=== PATIENT | male | born 1960 | race Caucasian/White ===

== ENCOUNTER 2020-01-08 11:53 | Observation (INO) ==
[2020-01-08] MEDS ORDERED: Ketorolac 15 MG/ML VIAL IVP ONE ×2 (12:17→14:13)
[2020-01-08] MEDS ORDERED: *HR* HYDROmorphone (PF) 1 MG/ML SYRINGE IVP ONE ×2 (12:17→14:13)
[2020-01-08] MEDS ORDERED: Ondansetron 4 MG/2 ML VIAL IVP ONE (12:18)
[2020-01-08 12:25] LABS: Basophils # 0.1 K/mcL (0.0-0.2); Basophils % 0.4 %; Hematocrit 45.6 % (37.5-50.1); Hemoglobin 15.1 g/dL (12.9-16.9); Immature Granulocytes % 0.5 % (0-4); Lymphocytes # 1.7 K/mcL (0.6-4.6); Lymphocytes % 9.5 %; Mean Corpuscular HGB Conc 33.1 g/dL (31.6-35.5); Mean Corpuscular Hemoglobin 30.9 pg (28.0-33.3); Mean Corpuscular Volume 93.4 fL (83.0-100.0); Mean Platelet Volume 10.3 fL (9.4-12.4); Monocytes # 0.9 K/mcL (0.0-1.3); Monocytes % 4.9 %; Neutrophils # 14.8 K/mcL (1.6-8.9); Platelet Count 311 K/mcL (140-400); Red Blood Count 4.88 M/mcL (4.19-5.50); Red Cell Distribution Width 11.8 % (11.5-14.5); Segmented Neutrophils % 84.7 %; White Blood Count 17.5 K/mcL (4.3-11.1)
[2020-01-08 12:25] LABS: Bilirubin,Urine Negative (Negative); Blood,Urine Large (Negative); Clarity,Urine Cloudy (Clear); Color,Urine Yellow (Yellow); Glucose,Urine (UA) >=1000 mg/dL (Normal); Ketones,Urine 40 mg/dL (Negative); Leukocyte Esterase,Urine Negative (Negative); Nitrite,Urine Negative (Negative); PH,Urine 5.5 pH Units (5.0-8.0); Protein,Urine 30 mg/dL (Neg-Trace); Urobilinogen,Urine Normal (Normal)
[2020-01-08 12:26] LABS: Bacteria,Urine None Seen per hpf (None-Few); Hyaline Casts,Urine None Seen per lpf (None-Few); RBC,Urine TNTC per hpf (0-3); Squamous Epithelial Cell,Urine Few per lpf (None-Few)
[2020-01-08 13:01] LABS: BUN/Creatinine Ratio 15 (6-26); Blood Urea Nitrogen 18 mg/dL (6-20); Carbon Dioxide 22 mEq/L (23-29); Chloride 102 mEq/L (98-107); Glucose 331 mg/dL (70-105); Osmolality,Calculated 301 (280-300); Potassium 4.4 mEq/L (3.5-5.1); Sodium 138 mEq/L (136-145); eGFR For African Americans > 60 (> 60); eGFR For Non-African Americans > 60 (> 60)
[2020-01-08] MEDS ORDERED: Dextrose Gel 15 GM/37.5 ML TUBE PO PRN ×2 (16:37)
[2020-01-08] MEDS ORDERED: D5% in Water 1,000 ML IVC PRN (16:37)
[2020-01-08] MEDS ORDERED: *HR* Dextrose 50 % in Water (Syg) 50 ML SYRINGE IVP PRN (16:37)
[2020-01-08] MEDS ORDERED: Insulin LISPRO 300 UNITS/3 ML VIAL SQ SCH (16:45)
[2020-01-08] MEDS: Ondansetron 4 MG/2 ML VIAL IVP PRN (17:31)
[2020-01-08] MEDS ORDERED: Naloxone 0.4 MG/ML INJ IVP PRN (17:55)
[2020-01-08] MEDS ORDERED: 0.9 % Sodium Chloride 1,000 ML IVC SCH (18:00)
[2020-01-09] MEDS: Insulin LISPRO 300 UNITS/3 ML VIAL SQ SCH ×3 (00:32→12:09)
[2020-01-09 07:30] LABS: Basophils # 0.1 K/mcL (0.0-0.2); Basophils % 0.5 %; Eosinophils # 0.2 K/mcL (0.0-0.6); Eosinophils % 1.2 %; Hematocrit 41.8 % (37.5-50.1); Hemoglobin 13.6 g/dL (12.9-16.9); Immature Granulocytes % 0.4 % (0-4); Lymphocytes # 2.9 K/mcL (0.6-4.6); Lymphocytes % 22.1 %; Mean Corpuscular HGB Conc 32.5 g/dL (31.6-35.5); Mean Corpuscular Hemoglobin 30.6 pg (28.0-33.3); Mean Corpuscular Volume 93.9 fL (83.0-100.0); Mean Platelet Volume 10.6 fL (9.4-12.4); Monocytes # 1.3 K/mcL (0.0-1.3); Neutrophils # 8.5 K/mcL (1.6-8.9); Platelet Count 259 K/mcL (140-400); Red Blood Count 4.45 M/mcL (4.19-5.50); Red Cell Distribution Width 12.1 % (11.5-14.5); Segmented Neutrophils % 65.8 %
[2020-01-09 07:32] LABS: Estimated Average Glucose 260 mg/dl
[2020-01-09 07:49] LABS: BUN/Creatinine Ratio 19 (6-26); Blood Urea Nitrogen 26 mg/dL (6-20); Calcium 8.4 mg/dL (8.6-10.3); Carbon Dioxide 26 mEq/L (23-29); Chloride 104 mEq/L (98-107); Glucose 185 mg/dL (70-105); Osmolality,Calculated 294 (280-300); Potassium 4.2 mEq/L (3.5-5.1); Sodium 137 mEq/L (136-145); eGFR For African Americans > 60 (> 60); eGFR For Non-African Americans 52 (> 60)
[2020-01-09] MEDS ORDERED: levETIRAcetam 250 MG TABLET PO SCH (09:00)
[2020-01-09] MEDS ORDERED: *HR* HYDROmorphone (PF) 1 MG/ML SYRINGE IVP ONE ×2 (09:55→10:35)
[2020-01-09] MEDS: Ondansetron 4 MG/2 ML VIAL IVP PRN (10:22)
[2020-01-09] MEDS ORDERED: *HR* HYDROmorphone (PF) 1 MG/ML SYRINGE IVP PRN (12:57)
[2020-01-09] MEDS ORDERED: *HR* Labetalol 20 MG/4 ML SYRINGE IVP PRN (12:57)
[2020-01-09] MEDS ORDERED: *HR* HYDROmorphone 2 MG TABLET PO PRN (12:57)
[2020-01-09] MEDS ORDERED: *HR* Promethazine 25 MG/ML VIAL IVP PRN (12:57)
[2020-01-09] MEDS ORDERED: *HR* OxyCODONE Immed Rel 5 MG TABLET PO PRN (12:57)
[2020-01-09] MEDS ORDERED: Acetaminophen IV 1,000 MG/100 ML INFUS..BTL IVPB ONE (12:57)
[2020-01-09] MEDS ORDERED: Lidocaine -MPF 2% 2 ML VIAL ONE (13:28)
[2020-01-09] MEDS ORDERED: Ondansetron 4 MG/2 ML VIAL ONE (13:28)
[2020-01-09] MEDS ORDERED: Dexamethasone 4 MG/ML VIAL ONE (13:28)
[2020-01-09] MEDS ORDERED: *HR* FentaNYL (PF) 100 MCG/2 ML VIAL ONE (13:28)
[2020-01-09] MEDS ORDERED: *HR* Propofol 200 MG/20 ML VIAL IVP ONE (13:28)
[2020-01-09] MEDS ORDERED: Clindamycin 600 MG/50 ML 600 MG/50 ML IV.SOLN IVPB ONE (14:00)
[2020-01-09] MEDS ORDERED: *HR* PHENYLEPHRINE 1,000 MCG/10 ML SYRINGE IVP ONE (14:05)
[2020-01-09] MEDS ORDERED: *HR* Belladonna Alkaloids/Opium 30 MG RECTAL SUPPOSITORY RC PRN (15:35)
[2020-01-09] MEDS ORDERED: Naloxone 0.4 MG/ML INJ IVP PRN (15:35)
[2020-01-09] MEDS ORDERED: Dextrose Gel 15 GM/37.5 ML TUBE PO PRN ×2 (15:35)
[2020-01-09] MEDS ORDERED: *HR* Dextrose 50 % in Water (Syg) 50 ML SYRINGE IVP PRN (15:35)
[2020-01-09] MEDS ORDERED: D5% in Water 1,000 ML IVC PRN (15:35)
[2020-01-09] MEDS ORDERED: Ondansetron 4 MG/2 ML VIAL IVP PRN (15:35)
[2020-01-09 15:52] VITALS: BP 132/84
[2020-01-09] MEDS ORDERED: Insulin LISPRO 300 UNITS/3 ML VIAL SQ SCH (18:00)
== END 2020-01-09 17:21 | disposition home or self-care (01) ==
LOC: 3ANU 11:53 → EMEROOARM 11:53 → SUATTDRO 15:18 → 3ANU 15:44
PROVIDERS: ADMIT Family Medicine; ATTEND Nurse Practitioner

== ENCOUNTER 2020-12-21 14:11 | Inpatient (IN) ==
[2020-12-21] MEDS ORDERED: *HR* HYDROmorphone (PF) 1 MG/ML SYRINGE IVP ONE (14:46)
[2020-12-21] MEDS ORDERED: Ketorolac 15 MG/ML VIAL IVP ONE (14:46)
[2020-12-21] MEDS ORDERED: *HR* Promethazine 25 MG/ML VIAL IM ONE (14:46)
[2020-12-21 15:03] LABS: Bacteria,Urine Few per hpf (None-Few); Bilirubin,Urine Negative (Negative); Blood,Urine Moderate (Negative); Clarity,Urine Clear (Clear); Color,Urine Light-Yellow (Yellow); Glucose,Urine (UA) 200 mg/dL (Normal); Ketones,Urine Trace mg/dL (Negative); Leukocyte Esterase,Urine Small (Negative); Mucus,Urine Few per lpf (None-Few); Nitrite,Urine Negative (Negative); PH,Urine 5.5 pH Units (5.0-8.0); Protein,Urine Trace mg/dL (Neg-Trace); RBC,Urine 15-30 per hpf (0-3); Specific Gravity,Urine 1.017 (1.010-1.025); Squamous Epithelial Cell,Urine Few per hpf (None-Few); Urobilinogen,Urine Normal (Normal)
[2020-12-21 15:27] LABS: Basophils % 0.3 %; Hematocrit 44.7 % (37.5-50.1); Hemoglobin 14.2 g/dL (12.9-16.9); Immature Granulocytes % 0.5 % (0-4); Lymphocytes # 1.2 K/mcL (0.6-4.6); Lymphocytes % 7.7 %; Mean Corpuscular HGB Conc 31.8 g/dL (31.6-35.5); Mean Corpuscular Hemoglobin 29.4 pg (28.0-33.3); Mean Corpuscular Volume 92.5 fL (83.0-100.0); Mean Platelet Volume 10.7 fL (9.4-12.4); Monocytes % 6.8 %; Neutrophils # 12.7 K/mcL (1.6-8.9); Platelet Count 291 K/mcL (140-400); Red Blood Count 4.83 M/mcL (4.19-5.50); Red Cell Distribution Width 11.9 % (11.5-14.5); Segmented Neutrophils % 84.7 %
[2020-12-21 15:31] LABS: Calcium 9.3 mg/dL (8.6-10.3); Potassium 4.6 mEq/L (3.5-5.1)
[2020-12-21] MEDS ORDERED: Ondansetron 4 MG/2 ML VIAL IVP PRN ×2 (17:45→21:00)
[2020-12-21] MEDS ORDERED: Naloxone 0.4 MG/ML INJ IVP PRN ×2 (17:45→21:00)
[2020-12-21] MEDS ORDERED: 0.9 % Sodium Chloride 1,000 ML IV ONE ×2 (17:50→21:00)
[2020-12-21] MEDS ORDERED: *HR* HYDROmorphone 2 MG/ML SYRINGE IVP PRN (17:50)
[2020-12-21] MEDS ORDERED: D5% in Water 1,000 ML IVC PRN ×2 (17:53→21:00)
[2020-12-21] MEDS ORDERED: Dextrose Gel 15 GM/37.5 ML TUBE PO PRN ×4 (17:53→21:00)
[2020-12-21] MEDS ORDERED: *HR* Dextrose 50 % in Water (Vial) 50 ML VIAL IVP PRN ×2 (17:53→21:00)
[2020-12-21] MEDS ORDERED: Clindamycin 900 MG/50 ML 0 MG/0 ML IV.SOLN IVPB ONE (17:58)
[2020-12-21] MEDS ORDERED: levoFLOXacin 750 MG/150 ML 750 MG/150 ML BAG IVPB SCH (18:00)
[2020-12-21] MEDS ORDERED: 0.9 % Sodium Chloride 1,000 ML IVC SCH (18:00)
[2020-12-21] MEDS ORDERED: *HR* HYDROmorphone (PF) 1 MG/ML SYRINGE IVP PRN (18:11)
[2020-12-21] MEDS ORDERED: *HR* FentaNYL (PF) 100 MCG/2 ML VIAL ONE (19:21)
[2020-12-21] MEDS ORDERED: *HR* PHENYLEPHRINE 1,000 MCG/10 ML SYRINGE IVP ONE (19:36)
[2020-12-21] MEDS ORDERED: Ondansetron 4 MG/2 ML VIAL ONE (19:39)
[2020-12-21] MEDS ORDERED: Dexamethasone 4 MG/ML VIAL ONE (19:39)
[2020-12-21] MEDS ORDERED: Isovue-300 50ML VIAL ONE (19:42)
[2020-12-21] MEDS ORDERED: Chlorhexidine Rinse 15 ML MOUTHWASH MM SCH (21:00)
[2020-12-21] MEDS ORDERED: *HR* Belladonna Alkaloids/Opium 30 MG RECTAL SUPPOSITORY RC PRN (21:00)
[2020-12-21] MEDS ORDERED: levETIRAcetam 250 MG TABLET PO SCH (21:00)
[2020-12-21] MEDS ORDERED: Insulin LISPRO 300 UNITS/3 ML VIAL SUBQ SCH ×2 (21:00)
[2020-12-21] MEDS: levETIRAcetam 250 MG TABLET PO SCH (21:38)
[2020-12-21] MEDS: Chlorhexidine Rinse 15 ML MOUTHWASH MM SCH (21:46)
[2020-12-21] MEDS: 0.9 % Sodium Chloride 1,000 ML IVC SCH (21:47)
[2020-12-22] MEDS: Insulin LISPRO 300 UNITS/3 ML VIAL SUBQ SCH ×3 (06:09→16:39)
[2020-12-22] MEDS ORDERED: Insulin LISPRO 300 UNITS/3 ML VIAL SUBQ SCH ×2 (07:30)
[2020-12-22 09:09] LABS: Basophils % 0.1 %; Hematocrit 38.4 % (37.5-50.1); Immature Granulocytes % 0.3 % (0-4); Lymphocytes # 1.1 K/mcL (0.6-4.6); Lymphocytes % 10.2 %; Mean Corpuscular HGB Conc 32.6 g/dL (31.6-35.5); Mean Corpuscular Hemoglobin 29.8 pg (28.0-33.3); Mean Corpuscular Volume 91.6 fL (83.0-100.0); Mean Platelet Volume 10.3 fL (9.4-12.4); Monocytes # 0.6 K/mcL (0.0-1.3); Monocytes % 5.7 %; Neutrophils # 8.9 K/mcL (1.6-8.9); Platelet Count 249 K/mcL (140-400); Red Blood Count 4.19 M/mcL (4.19-5.50); Red Cell Distribution Width 11.9 % (11.5-14.5); Segmented Neutrophils % 83.7 %; White Blood Count 10.6 K/mcL (4.3-11.1)
[2020-12-22 09:12] LABS: Hemoglobin 12.5 g/dL (12.9-16.9)
[2020-12-22 09:29] LABS: Calcium 8.7 mg/dL (8.6-10.3); Potassium 4.4 mEq/L (3.5-5.1)
[2020-12-22] MEDS: Hyoscyamine SL 0.125 MG TAB.SUBL SL PRN ×2 (10:21→22:00)
[2020-12-22] MEDS: Chlorhexidine Rinse 15 ML MOUTHWASH MM SCH ×2 (10:21→22:01)
[2020-12-22] MEDS: levETIRAcetam 250 MG TABLET PO SCH ×2 (10:21→22:01)
[2020-12-22] MEDS: *HR* HYDROmorphone (PF) 1 MG/ML SYRINGE IVP PRN ×2 (10:22→22:01)
[2020-12-22] MEDS: 0.9 % Sodium Chloride 1,000 ML IVC SCH (12:28)
[2020-12-23] MEDS: 0.9 % Sodium Chloride 1,000 ML IVC SCH (02:51)
[2020-12-23] MEDS: Insulin LISPRO 300 UNITS/3 ML VIAL SUBQ SCH ×3 (02:52→14:09)
[2020-12-23 05:40] LABS: Basophils # 0.1 K/mcL (0.0-0.2); Basophils % 0.6 %; Eosinophils # 0.2 K/mcL (0.0-0.6); Eosinophils % 2.2 %; Hematocrit 37.4 % (37.5-50.1); Hemoglobin 11.6 g/dL (12.9-16.9); Immature Granulocytes % 0.6 % (0-4); Lymphocytes % 29.5 %; Mean Corpuscular Hemoglobin 29.1 pg (28.0-33.3); Mean Platelet Volume 10.6 fL (9.4-12.4); Monocytes # 0.9 K/mcL (0.0-1.3); Monocytes % 8.6 %; Platelet Count 214 K/mcL (140-400); Red Blood Count 3.98 M/mcL (4.19-5.50); Segmented Neutrophils % 58.5 %; White Blood Count 10.3 K/mcL (4.3-11.1)
[2020-12-23 05:49] LABS: Activated Partial Thrombo Time 23.3 Seconds (26.0-36.0); Prothrombin Time 11.6 Seconds (9.4-12.1)
[2020-12-23] MEDS: *HR* HYDROmorphone (PF) 1 MG/ML SYRINGE IVP PRN ×2 (06:00→13:57)
[2020-12-23 06:06] LABS: Calcium 8.3 mg/dL (8.6-10.3); Magnesium 1.7 mg/dL (1.6-2.6); Potassium 4.7 mEq/L (3.5-5.1)
[2020-12-23] MEDS: Chlorhexidine Rinse 15 ML MOUTHWASH MM SCH (09:19)
[2020-12-23] MEDS: levETIRAcetam 250 MG TABLET PO SCH (09:20)
[2020-12-23] MEDS ORDERED: *HR* FentaNYL (PF) 100 MCG/2 ML VIAL IVP ONE ×2 (11:33→12:46)
[2020-12-23] MEDS ORDERED: *HR* Midazolam HCl 2 MG/2 ML VIAL IVP ONE ×2 (11:33→12:47)
[2020-12-23] MEDS ORDERED: *HR* Midazolam HCl 2 MG/2 ML VIAL ONE (13:04)
[2020-12-23] MEDS ORDERED: *HR* FentaNYL (PF) 100 MCG/2 ML VIAL ONE (13:04)
[2020-12-23] MEDS ORDERED: Isovue-300 50ML VIAL IVP ONE (13:09)
[2020-12-23 16:40] VITALS: BP 145/76
[2020-12-23] MEDS ORDERED: levoFLOXacin 750 MG/150 ML 750 MG/150 ML BAG IVPB SCH (18:00)
== END 2020-12-23 17:17 | disposition home or self-care (01) | DRG 661 ==
LOC: EMEROOARM 14:11 → 3ANU 14:11 → SUATTDRO 17:51 → 3ANU 18:34 → SUATTDRO 18:43
PROVIDERS: ADMIT Pharmacist; ATTEND Student in an Organized Health Care Education/Training Program

== ENCOUNTER 2021-01-26 20:53 | Inpatient (IN) ==
[2021-01-26] MEDS ORDERED: 0.9 % Sodium Chloride 1,000 ML IVC ONE ×2 (22:06→22:07)
[2021-01-26] MEDS ORDERED: 0.9 % Sodium Chloride 500 ML IVC STA (22:07)
[2021-01-26 22:22] LABS: Basophils % 0.2 %; Eosinophils % 0.1 %; Hematocrit 41.3 % (37.5-50.1); Hemoglobin 13.7 g/dL (12.9-16.9); Immature Granulocytes % 0.7 % (0-4); Lymphocytes # 1.5 K/mcL (0.6-4.6); Lymphocytes % 9.3 %; Mean Corpuscular HGB Conc 33.2 g/dL (31.6-35.5); Mean Corpuscular Hemoglobin 29.2 pg (28.0-33.3); Mean Corpuscular Volume 88.1 fL (83.0-100.0); Mean Platelet Volume 10.3 fL (9.4-12.4); Monocytes # 1.5 K/mcL (0.0-1.3); Monocytes % 9.2 %; Neutrophils # 13.4 K/mcL (1.6-8.9); Platelet Count 309 K/mcL (140-400); Red Blood Count 4.69 M/mcL (4.19-5.50); Red Cell Distribution Width 11.7 % (11.5-14.5); Segmented Neutrophils % 80.5 %; White Blood Count 16.6 K/mcL (4.3-11.1)
[2021-01-26 22:28] LABS: Albumin 3.7 g/dL (3.5-5.7); Albumin/Globulin Ratio 0.9 (1.1-2.2); Bilirubin,Total 0.6 mg/dL (0.3-1.0); Globulin 4.2 g/dL (2.4-3.5); Potassium 4.1 mEq/L (3.5-5.1); Total Protein 7.9 g/dL (6.4-8.9)
[2021-01-26 22:35] LABS: INR 1.3; Prothrombin Time 14.5 Seconds (9.4-12.1)
[2021-01-26] MEDS ORDERED: Piperacillin/Tazobactam 3.375 GM in 0.9 % Sodium Chloride Mini Bag 100 ML IVPB ONE (22:40)
[2021-01-26] MEDS ORDERED: Vancomycin 1,500 MG/265 ML IV.SOLN IVPB ONE (23:00)
[2021-01-26] MEDS ORDERED: Ondansetron 4 MG/2 ML VIAL ONE (23:16)
[2021-01-26 23:17] LABS: Bacteria,Urine Few per hpf (None-Few); Bilirubin,Urine Negative (Negative); Blood,Urine Moderate (Negative); Budding Yeast,Urine Few per hpf (None Seen); Clarity,Urine Turbid (Clear); Color,Urine Light-Yellow (Yellow); Glucose,Urine (UA) >=1000 mg/dL (Normal); Ketones,Urine Negative (Negative); Leukocyte Esterase,Urine Large (Negative); Mucus,Urine Few per lpf (None-Few); Nitrite,Urine Negative (Negative); Protein,Urine 50 mg/dL (Neg-Trace); Specific Gravity,Urine 1.015 (1.010-1.025); Squamous Epithelial Cell,Urine Few per hpf (None-Few); Urobilinogen,Urine Normal (Normal); WBC,Urine TNTC per hpf (0-3)
[2021-01-26] MEDS ORDERED: Ondansetron 4 MG/2 ML VIAL IVP ONE (23:21)
[2021-01-27] MEDS ORDERED: Ondansetron ODT 4 MG TAB.RAPDIS SL PRN (00:42)
[2021-01-27] MEDS ORDERED: Naloxone 0.4 MG/ML INJ IVP PRN ×5 (00:42→22:44)
[2021-01-27] MEDS ORDERED: Melatonin 3 MG TABLET PO PRN (00:42)
[2021-01-27] MEDS ORDERED: *HR* HYDROmorphone (PF) 1 MG/ML SYRINGE IVP ONE (00:45)
[2021-01-27] MEDS: Ringers Solution, Lactated 1,000 ML IVC SCH ×3 (02:06→23:22)
[2021-01-27] MEDS ORDERED: Dextrose Gel 15 GM/37.5 ML TUBE PO PRN ×4 (02:20→22:44)
[2021-01-27] MEDS ORDERED: *HR* Dextrose 50 % in Water (Vial) 50 ML VIAL IVP PRN ×2 (02:20→22:44)
[2021-01-27] MEDS ORDERED: D5% in Water 1,000 ML IVC PRN ×2 (02:20→22:44)
[2021-01-27] MEDS ORDERED: Insulin LISPRO 300 UNITS/3 ML VIAL SUBQ SCH (02:30)
[2021-01-27 02:50] LABS: Sodium, Urine 69.4 mEq/L
[2021-01-27 04:51] LABS: Bilirubin,Urine Negative (Negative); Blood,Urine Moderate (Negative); Budding Yeast,Urine Few per hpf (None Seen); Clarity,Urine Turbid (Clear); Color,Urine Light-Yellow (Yellow); Glucose,Urine (UA) >=1000 mg/dL (Normal); Ketones,Urine Negative (Negative); Leukocyte Esterase,Urine Large (Negative); Mucus,Urine Few per lpf (None-Few); Nitrite,Urine Negative (Negative); Protein,Urine 30 mg/dL (Neg-Trace); Specific Gravity,Urine 1.013 (1.010-1.025); Squamous Epithelial Cell,Urine Few per hpf (None-Few); Urobilinogen,Urine Normal (Normal); WBC,Urine TNTC per hpf (0-3)
[2021-01-27] MEDS ORDERED: Acetaminophen IV 1,000 MG/100 ML BAG IVPB ONE (05:24)
[2021-01-27] MEDS ORDERED: *HR* OxyCODONE Immed Rel 5 MG TABLET PO PRN (05:30)
[2021-01-27] MEDS ORDERED: Acetaminophen 325 MG TABLET PO PRN (05:30)
[2021-01-27] MEDS: *HR* Heparin 5,000 UNIT/ML VIAL SQ SCH ×3 (06:00→22:12)
[2021-01-27] MEDS: Cefepime HCl 2,000 MG in 0.9 % Sodium Chloride Mini Bag 100 ML IVPB SCH ×2 (06:21→18:00)
[2021-01-27 07:42] LABS: Estimated Average Glucose 235 mg/dl; Hemoglobin A1C 9.8 %
[2021-01-27] MEDS: Insulin LISPRO 300 UNITS/3 ML VIAL SUBQ SCH ×3 (07:54→17:06)
[2021-01-27] MEDS ORDERED: *HR* HYDROcodone/Acet 5/325 mg TABLET PO PRN (14:31)
[2021-01-27] MEDS ORDERED: Famotidine 20 MG/2 ML VIAL ONE (19:04)
[2021-01-27] MEDS ORDERED: Famotidine 20 MG/2 ML VIAL IVP ONE (20:02)
[2021-01-27] MEDS ORDERED: *HR* FentaNYL (PF) 100 MCG/2 ML VIAL ONE (20:44)
[2021-01-27] MEDS ORDERED: *HR* Propofol 200 MG/20 ML VIAL IVP ONE (20:44)
[2021-01-27] MEDS ORDERED: Lidocaine -MPF 2% 2 ML VIAL ONE (20:44)
[2021-01-27] MEDS ORDERED: Ondansetron 4 MG/2 ML VIAL ONE (20:44)
[2021-01-27] MEDS ORDERED: Isovue-300 50ML VIAL ONE (20:54)
[2021-01-27] MEDS ORDERED: *HR* Succinylcholine 200 MG/10 ML VIAL IVP ONE (21:15)
[2021-01-27] MEDS ORDERED: *HR* Belladonna Alkaloids/Opium 60 MG RECTAL SUPPOSITORY RC ONE (21:30)
[2021-01-27] MEDS: Melatonin 3 MG TABLET PO PRN (23:28)
[2021-01-27] MEDS: *HR* OxyCODONE Immed Rel 5 MG TABLET PO PRN (23:28)
[2021-01-28] MEDS: Cefepime HCl 2,000 MG in 0.9 % Sodium Chloride Mini Bag 100 ML IVPB SCH ×2 (05:27→16:59)
[2021-01-28] MEDS: *HR* Heparin 5,000 UNIT/ML VIAL SQ SCH ×3 (05:28→20:17)
[2021-01-28] MEDS: *HR* OxyCODONE Immed Rel 5 MG TABLET PO PRN ×2 (05:40→15:44)
[2021-01-28] MEDS: Ringers Solution, Lactated 1,000 ML IVC SCH ×2 (07:24→08:09)
[2021-01-28] MEDS: Insulin LISPRO 300 UNITS/3 ML VIAL SUBQ SCH ×5 (08:09→17:00)
[2021-01-28 08:35] LABS: Basophils % 0.4 %; Hematocrit 37.1 % (37.5-50.1); Immature Granulocytes % 0.7 % (0-4); Lymphocytes # 0.8 K/mcL (0.6-4.6); Lymphocytes % 7.6 %; Mean Corpuscular HGB Conc 32.6 g/dL (31.6-35.5); Mean Corpuscular Hemoglobin 29.7 pg (28.0-33.3); Mean Corpuscular Volume 91.2 fL (83.0-100.0); Mean Platelet Volume 10.1 fL (9.4-12.4); Monocytes # 0.3 K/mcL (0.0-1.3); Monocytes % 3.2 %; Neutrophils # 9.4 K/mcL (1.6-8.9); Platelet Count 284 K/mcL (140-400); Red Blood Count 4.07 M/mcL (4.19-5.50); Red Cell Distribution Width 11.9 % (11.5-14.5); Segmented Neutrophils % 88.1 %; White Blood Count 10.7 K/mcL (4.3-11.1)
[2021-01-28 08:46] LABS: Hemoglobin 12.1 g/dL (12.9-16.9)
[2021-01-28 08:53] LABS: Calcium 8.5 mg/dL (8.6-10.3); Magnesium 1.8 mg/dL (1.6-2.6); Phosphorous 3.6 mg/dL (2.7-4.5); Potassium 4.5 mEq/L (3.5-5.1)
[2021-01-28] MEDS: Ondansetron ODT 4 MG TAB.RAPDIS SL PRN (11:49)
[2021-01-28] MEDS: *HR* HYDROcodone/Acet 5/325 mg TABLET PO PRN ×2 (11:49→20:38)
[2021-01-28] MEDS: levETIRAcetam 250 MG TABLET PO SCH (16:58)
[2021-01-28] MEDS: Melatonin 3 MG TABLET PO PRN (20:17)
[2021-01-28] MEDS: Insulin DETEMIR 100 UNIT/ML X5UNITS SUBQ SCH (20:17)
[2021-01-29 05:31] LABS: Basophils # 0.1 K/mcL (0.0-0.2); Basophils % 0.6 %; Eosinophils # 0.4 K/mcL (0.0-0.6); Eosinophils % 3.5 %; Hematocrit 36.2 % (37.5-50.1); Hemoglobin 11.5 g/dL (12.9-16.9); Immature Granulocytes % 0.9 % (0-4); Lymphocytes # 1.5 K/mcL (0.6-4.6); Lymphocytes % 12.2 %; Mean Corpuscular HGB Conc 31.8 g/dL (31.6-35.5); Mean Corpuscular Hemoglobin 29.3 pg (28.0-33.3); Mean Corpuscular Volume 92.1 fL (83.0-100.0); Mean Platelet Volume 10.2 fL (9.4-12.4); Monocytes # 1.3 K/mcL (0.0-1.3); Monocytes % 10.3 %; Neutrophils # 8.8 K/mcL (1.6-8.9); Platelet Count 311 K/mcL (140-400); Red Blood Count 3.93 M/mcL (4.19-5.50); Red Cell Distribution Width 11.8 % (11.5-14.5); Segmented Neutrophils % 72.5 %; White Blood Count 12.1 K/mcL (4.3-11.1)
[2021-01-29 05:41] LABS: Calcium 8.5 mg/dL (8.6-10.3); Magnesium 1.8 mg/dL (1.6-2.6); Phosphorous 2.8 mg/dL (2.7-4.5); Potassium 4.6 mEq/L (3.5-5.1)
[2021-01-29] MEDS: levETIRAcetam 250 MG TABLET PO SCH ×2 (06:35→18:11)
[2021-01-29] MEDS: *HR* Heparin 5,000 UNIT/ML VIAL SQ SCH ×3 (06:36→21:31)
[2021-01-29] MEDS: *HR* HYDROcodone/Acet 5/325 mg TABLET PO PRN ×2 (06:43→13:07)
[2021-01-29] MEDS: Cefepime HCl 2,000 MG in 0.9 % Sodium Chloride Mini Bag 100 ML IVPB SCH ×2 (06:45→18:11)
[2021-01-29] MEDS: Fluconazole 100 MG TABLET PO SCH (08:21)
[2021-01-29] MEDS: Insulin DETEMIR 100 UNIT/ML X5UNITS SUBQ SCH ×2 (08:22→21:33)
[2021-01-29] MEDS: Insulin LISPRO 300 UNITS/3 ML VIAL SUBQ SCH ×6 (08:24→17:02)
[2021-01-29] MEDS: *HR* OxyCODONE Immed Rel 5 MG TABLET PO PRN (18:11)
[2021-01-30 03:44] LABS: Basophils # 0.1 K/mcL (0.0-0.2); Basophils % 0.8 %; Eosinophils # 0.7 K/mcL (0.0-0.6); Eosinophils % 6.5 %; Hematocrit 34.9 % (37.5-50.1); Hemoglobin 11.2 g/dL (12.9-16.9); Immature Granulocytes % 1.6 % (0-4); Lymphocytes # 1.8 K/mcL (0.6-4.6); Lymphocytes % 17.6 %; Mean Corpuscular HGB Conc 32.1 g/dL (31.6-35.5); Mean Corpuscular Volume 90.4 fL (83.0-100.0); Mean Platelet Volume 10.2 fL (9.4-12.4); Monocytes # 1.3 K/mcL (0.0-1.3); Monocytes % 12.8 %; Neutrophils # 6.3 K/mcL (1.6-8.9); Platelet Count 312 K/mcL (140-400); Red Blood Count 3.86 M/mcL (4.19-5.50); Segmented Neutrophils % 60.7 %; White Blood Count 10.4 K/mcL (4.3-11.1)
[2021-01-30 04:00] LABS: Calcium 8.3 mg/dL (8.6-10.3); Magnesium 1.6 mg/dL (1.6-2.6); Phosphorous 2.6 mg/dL (2.7-4.5); Potassium 3.8 mEq/L (3.5-5.1)
[2021-01-30] MEDS: *HR* Heparin 5,000 UNIT/ML VIAL SQ SCH ×3 (06:42→22:15)
[2021-01-30] MEDS: Cefepime HCl 2,000 MG in 0.9 % Sodium Chloride Mini Bag 100 ML IVPB SCH ×2 (06:43→18:13)
[2021-01-30] MEDS: levETIRAcetam 250 MG TABLET PO SCH ×2 (06:43→17:17)
[2021-01-30] MEDS: Insulin LISPRO 300 UNITS/3 ML VIAL SUBQ SCH ×6 (08:15→17:14)
[2021-01-30] MEDS: Fluconazole 100 MG TABLET PO SCH (08:15)
[2021-01-30] MEDS: Insulin DETEMIR 100 UNIT/ML X5UNITS SUBQ SCH ×2 (08:16→20:36)
[2021-01-30] MEDS: *HR* OxyCODONE Immed Rel 5 MG TABLET PO PRN (12:40)
[2021-01-30] MEDS: Sennosides/Docusate Sodium TABLET PO SCH (15:22)
[2021-01-31] MEDS: Cefepime HCl 2,000 MG in 0.9 % Sodium Chloride Mini Bag 100 ML IVPB SCH ×2 (05:38→17:14)
[2021-01-31] MEDS: *HR* Heparin 5,000 UNIT/ML VIAL SQ SCH ×3 (05:41→20:31)
[2021-01-31] MEDS: levETIRAcetam 250 MG TABLET PO SCH ×2 (05:41→17:14)
[2021-01-31] MEDS: Fluconazole 100 MG TABLET PO SCH (08:18)
[2021-01-31] MEDS: Insulin DETEMIR 100 UNIT/ML X5UNITS SUBQ SCH ×2 (08:18→20:31)
[2021-01-31] MEDS: Sennosides/Docusate Sodium TABLET PO SCH (08:18)
[2021-01-31] MEDS: Insulin LISPRO 300 UNITS/3 ML VIAL SUBQ SCH ×6 (08:19→17:00)
[2021-01-31 09:57] LABS: Calcium 9.2 mg/dL (8.6-10.3); Magnesium 1.8 mg/dL (1.6-2.6); Phosphorous 2.7 mg/dL (2.7-4.5); Potassium 4.1 mEq/L (3.5-5.1)
[2021-01-31] MEDS ORDERED: Psyllium 1 PACKET POWD.PACK PO PRN (18:05)
[2021-01-31] MEDS: *HR* OxyCODONE Immed Rel 5 MG TABLET PO PRN (19:25)
[2021-02-01] MEDS: *HR* OxyCODONE Immed Rel 5 MG TABLET PO PRN ×2 (01:30→19:35)
[2021-02-01] MEDS: *HR* Heparin 5,000 UNIT/ML VIAL SQ SCH ×3 (05:28→22:12)
[2021-02-01] MEDS: Cefepime HCl 2,000 MG in 0.9 % Sodium Chloride Mini Bag 100 ML IVPB SCH ×2 (05:28→17:39)
[2021-02-01] MEDS: levETIRAcetam 250 MG TABLET PO SCH ×2 (05:28→17:39)
[2021-02-01] MEDS: Ondansetron ODT 4 MG TAB.RAPDIS SL PRN ×2 (05:43→20:39)
[2021-02-01] MEDS: *HR* HYDROcodone/Acet 5/325 mg TABLET PO PRN ×2 (05:44→22:11)
[2021-02-01] MEDS: Insulin DETEMIR 100 UNIT/ML X5UNITS SUBQ SCH ×2 (08:50→20:42)
[2021-02-01] MEDS: Sennosides/Docusate Sodium TABLET PO SCH (08:50)
[2021-02-01] MEDS: Fluconazole 100 MG TABLET PO SCH (08:50)
[2021-02-01] MEDS: Insulin LISPRO 300 UNITS/3 ML VIAL SUBQ SCH ×6 (08:51→16:38)
[2021-02-01 08:59] LABS: Calcium 9.2 mg/dL (8.6-10.3); Magnesium 1.9 mg/dL (1.6-2.6); Potassium 4.4 mEq/L (3.5-5.1)
[2021-02-01] MEDS ORDERED: Fluconazole 100 MG TABLET PO ONE (15:21)
[2021-02-01] MEDS: Lactobacillus 1 EACH CAP.SPRINK PO SCH (20:33)
[2021-02-01] MEDS: Melatonin 3 MG TABLET PO PRN (20:40)
[2021-02-02] MEDS: *HR* OxyCODONE Immed Rel 5 MG TABLET PO PRN (01:44)
[2021-02-02] MEDS: *HR* HYDROcodone/Acet 5/325 mg TABLET PO PRN (02:59)
[2021-02-02 03:32] LABS: Calcium 9.4 mg/dL (8.6-10.3); Phosphorous 4.1 mg/dL (2.7-4.5); Potassium 4.4 mEq/L (3.5-5.1)
[2021-02-02] MEDS: levETIRAcetam 250 MG TABLET PO SCH ×2 (05:30→18:03)
[2021-02-02] MEDS: *HR* Heparin 5,000 UNIT/ML VIAL SQ SCH ×3 (05:31→20:41)
[2021-02-02] MEDS: Cefepime HCl 2,000 MG in 0.9 % Sodium Chloride Mini Bag 100 ML IVPB SCH ×2 (05:31→18:03)
[2021-02-02] MEDS: Ondansetron ODT 4 MG TAB.RAPDIS SL PRN (07:32)
[2021-02-02] MEDS ORDERED: Iron Sucrose Complex 400 MG in 0.9 % Sodium Chloride 250 ML IVPB ONE (07:33)
[2021-02-02] MEDS ORDERED: traZODone 50 MG TABLET PO PRN (08:24)
[2021-02-02] MEDS: Fluconazole 100 MG TABLET PO SCH (08:28)
[2021-02-02] MEDS: Sennosides/Docusate Sodium TABLET PO SCH (08:29)
[2021-02-02] MEDS: Insulin LISPRO 300 UNITS/3 ML VIAL SUBQ SCH ×6 (08:29→16:50)
[2021-02-02] MEDS: Insulin DETEMIR 100 UNIT/ML X5UNITS SUBQ SCH ×2 (08:29→20:50)
[2021-02-02] MEDS: Lactobacillus 1 EACH CAP.SPRINK PO SCH ×2 (08:29→20:40)
[2021-02-02] MEDS: Multivit/Ca/Min/Fe/FA 1 TAB TABLET PO SCH (08:29)
[2021-02-02 09:58] LABS: Hematocrit 41.8 % (37.5-50.1); Hemoglobin 13.3 g/dL (12.9-16.9); Mean Corpuscular HGB Conc 31.8 g/dL (31.6-35.5); Mean Corpuscular Hemoglobin 29.2 pg (28.0-33.3); Mean Corpuscular Volume 91.9 fL (83.0-100.0); Mean Platelet Volume 9.6 fL (9.4-12.4); Platelet Count 441 K/mcL (140-400); Red Blood Count 4.55 M/mcL (4.19-5.50); Red Cell Distribution Width 12.1 % (11.5-14.5); White Blood Count 12.8 K/mcL (4.3-11.1)
[2021-02-02] MEDS: Acetaminophen 325 MG TABLET PO PRN (15:24)
[2021-02-03 01:20] LABS: Hematocrit 38.5 % (37.5-50.1); Hemoglobin 12.6 g/dL (12.9-16.9); Mean Corpuscular HGB Conc 32.7 g/dL (31.6-35.5); Mean Corpuscular Volume 91.7 fL (83.0-100.0); Mean Platelet Volume 9.7 fL (9.4-12.4); Platelet Count 392 K/mcL (140-400); Red Cell Distribution Width 12.2 % (11.5-14.5); White Blood Count 10.5 K/mcL (4.3-11.1)
[2021-02-03 01:31] LABS: Calcium 9.1 mg/dL (8.6-10.3); Magnesium 1.9 mg/dL (1.6-2.6); Phosphorous 3.6 mg/dL (2.7-4.5); Potassium 4.1 mEq/L (3.5-5.1)
[2021-02-03] MEDS: Cefepime HCl 2,000 MG in 0.9 % Sodium Chloride Mini Bag 100 ML IVPB SCH (06:11)
[2021-02-03] MEDS: levETIRAcetam 250 MG TABLET PO SCH (06:12)
[2021-02-03] MEDS: *HR* Heparin 5,000 UNIT/ML VIAL SQ SCH (06:16)
[2021-02-03 08:30] VITALS: BP 116/60
[2021-02-03] MEDS: Sennosides/Docusate Sodium TABLET PO SCH (08:57)
[2021-02-03] MEDS: Multivit/Ca/Min/Fe/FA 1 TAB TABLET PO SCH (08:57)
[2021-02-03] MEDS: Lactobacillus 1 EACH CAP.SPRINK PO SCH (08:58)
[2021-02-03] MEDS: Fluconazole 100 MG TABLET PO SCH (08:58)
[2021-02-03] MEDS: Acetaminophen 325 MG TABLET PO PRN (08:59)
[2021-02-03] MEDS: Insulin DETEMIR 100 UNIT/ML X5UNITS SUBQ SCH (09:00)
[2021-02-03] MEDS: Insulin LISPRO 300 UNITS/3 ML VIAL SUBQ SCH ×4 (09:01→12:35)
== END 2021-02-03 16:28 | disposition home or self-care (01) | DRG 659 ==
LOC: EMEROOARM 20:53 → 3ANU 20:53 → SUATTDRO 23:57 → 3ANU 01-27 01:15 → SUATTDRO 01-28 15:39
PROVIDERS: ADMIT Internal Medicine; ATTEND Internal Medicine

== ENCOUNTER 2021-02-11 07:00 | Inpatient (IN) ==
[~2021-02-11 07:00] MED LIST: 0.9 % Sodium Chloride 1,000 ML IVC ONE; Acetaminophen IV 1,000 MG/100 ML BAG IVPB ONE; Famotidine 20 MG/2 ML VIAL IVP ONE
[2021-02-11] MEDS ORDERED: *HR* FentaNYL (PF) 100 MCG/2 ML VIAL ONE (07:23)
[2021-02-11] MEDS ORDERED: Lidocaine -MPF 2% 2 ML VIAL ONE (07:24)
[2021-02-11] MEDS ORDERED: *HR* Propofol 200 MG/20 ML VIAL IVP ONE (07:24)
[2021-02-11] MEDS ORDERED: Ondansetron 4 MG/2 ML VIAL ONE (07:24)
[2021-02-11] MEDS ORDERED: *HR* Rocuronium Bromide 50 MG/5 ML VIAL ONE ×2 (07:26→10:26)
[2021-02-11] MEDS ORDERED: Ringers Solution, Lactated 1,000 ML IVC SCH (08:30)
[2021-02-11] MEDS ORDERED: Ondansetron 4 MG/2 ML VIAL IVP ONE (08:35)
[2021-02-11] MEDS ORDERED: diazePAM 5 MG TABLET PO ONE (08:35)
[2021-02-11] MEDS ORDERED: Naloxone 0.4 MG/ML INJ IVP PRN ×2 (08:43→14:24)
[2021-02-11] MEDS ORDERED: Nitroglycerin 0.4 MG TAB.SUBL SL PRN (08:43)
[2021-02-11] MEDS ORDERED: *HR* FentaNYL (PF) 100 MCG/2 ML VIAL IVP PRN (08:43)
[2021-02-11] MEDS ORDERED: Albuterol 2.5 MG/3 ML NEBULIZER IH PRN (08:43)
[2021-02-11] MEDS ORDERED: Insulin Human Regular 5 UNIT in 0.9 % Sodium Chloride 10 ML IV ONE (08:50)
[2021-02-11 08:52] LABS: Basophils # 0.1 K/mcL (0.0-0.2); Basophils % 0.8 %; Eosinophils # 0.1 K/mcL (0.0-0.6); Eosinophils % 1.2 %; Hematocrit 44.1 % (37.5-50.1); Hemoglobin 14.2 g/dL (12.9-16.9); Lymphocytes # 1.4 K/mcL (0.6-4.6); Lymphocytes % 12.4 %; Mean Corpuscular HGB Conc 32.2 g/dL (31.6-35.5); Mean Corpuscular Hemoglobin 29.1 pg (28.0-33.3); Mean Corpuscular Volume 90.4 fL (83.0-100.0); Mean Platelet Volume 10.4 fL (9.4-12.4); Monocytes # 0.8 K/mcL (0.0-1.3); Monocytes % 6.7 %; Neutrophils # 8.9 K/mcL (1.6-8.9); Platelet Count 329 K/mcL (140-400); Red Blood Count 4.88 M/mcL (4.19-5.50); Red Cell Distribution Width 12.6 % (11.5-14.5); Segmented Neutrophils % 77.9 %; White Blood Count 11.4 K/mcL (4.3-11.1)
[2021-02-11] MEDS ORDERED: Heparin 1,000 UNITS/500 mL 500 ML ONE (09:01)
[2021-02-11] MEDS ORDERED: Clindamycin 900 MG/50 ML 900 MG/50 ML IV.SOLN IVPB ONE (09:03)
[2021-02-11] MEDS ORDERED: *HR* Succinylcholine 200 MG/10 ML VIAL IVP ONE (09:10)
[2021-02-11] MEDS ORDERED: *HR* Midazolam HCl 2 MG/2 ML VIAL ONE (09:13)
[2021-02-11] MEDS ORDERED: Albumin Human 5% 25.0 GM/500 ML IV.SOLN ONE (09:59)
[2021-02-11] MEDS ORDERED: *HR* Phenylephrine 10 MG/ML VIAL ONE (10:41)
[2021-02-11] MEDS ORDERED: *HR* HYDROMORPHONE 2 MG/ML VIAL ONE (10:44)
[2021-02-11] MEDS ORDERED: EPHEDrine 50 MG/ML VIAL ONE (11:01)
[2021-02-11 11:05] LABS: ABG Base Excess -3 mEq/L (-2 to 3); ABG Chloride 106 mEq/L (98-107); ABG Glucose 191 mg/dL (60-95); ABG HCO3 22 mEq/L (21-27); ABG Ionized Calcium 1.17 mmol/L (1.15-1.35); ABG Oxygen Saturation 99 % (95-98); ABG PCO2 39 mmHg (35-45); ABG PH 7.36 pH Units (7.32-7.45); ABG PO2 160 mmHg (85-104); ABG TCO2 23 mEq/L (20-26)
[2021-02-11] MEDS ORDERED: Sugammadex Sodium 200 MG/2 ML VIAL IV ONE (11:57)
[2021-02-11] MEDS: *HR* HYDROmorphone (PF) 1 MG/ML SYRINGE IVP PRN ×4 (12:52→13:17)
[2021-02-11] MEDS ORDERED: *HR* Dextrose 50 % in Water (Vial) 50 ML VIAL IVP PRN (14:24)
[2021-02-11] MEDS ORDERED: *HR* Belladonna Alkaloids/Opium 30 MG RECTAL SUPPOSITORY RC PRN (14:24)
[2021-02-11] MEDS ORDERED: Dextrose Gel 15 GM/37.5 ML TUBE PO PRN ×2 (14:24)
[2021-02-11] MEDS ORDERED: D5% in Water 1,000 ML IVC PRN (14:24)
[2021-02-11] MEDS: 0.9 % Sodium Chloride 1,000 ML IVC SCH (14:50)
[2021-02-11] MEDS: Ondansetron 4 MG/2 ML VIAL IVP PRN ×2 (14:53→22:40)
[2021-02-11] MEDS ORDERED: *HR* HYDROmorphone (PF) 1 MG/ML SYRINGE IVP ONE (15:25)
[2021-02-11] MEDS: Acetaminophen IV 1,000 MG/100 ML BAG IVPB SCH (16:43)
[2021-02-11] MEDS: Insulin LISPRO 300 UNITS/3 ML VIAL SUBQ SCH (16:44)
[2021-02-11] MEDS ORDERED: Isovue-300 50ML VIAL ONE (18:38)
[2021-02-11] MEDS: levETIRAcetam 250 MG TABLET PO SCH (20:40)
[2021-02-11] MEDS: *HR* FentaNYL (PF) 100 MCG/2 ML VIAL IVP PRN (22:39)
[2021-02-12] MEDS: Acetaminophen IV 1,000 MG/100 ML BAG IVPB SCH ×3 (00:12→08:23)
[2021-02-12] MEDS: 0.9 % Sodium Chloride 1,000 ML IVC SCH (00:14)
[2021-02-12 01:36] LABS: Basophils % 0.1 %; Hematocrit 34.7 % (37.5-50.1); Hemoglobin 10.9 g/dL (12.9-16.9); Immature Granulocytes % 0.3 % (0-4); Lymphocytes # 0.5 K/mcL (0.6-4.6); Lymphocytes % 2.7 %; Mean Corpuscular HGB Conc 31.4 g/dL (31.6-35.5); Mean Corpuscular Volume 92.3 fL (83.0-100.0); Monocytes % 5.6 %; Neutrophils # 15.5 K/mcL (1.6-8.9); Platelet Count 228 K/mcL (140-400); Red Blood Count 3.76 M/mcL (4.19-5.50); Red Cell Distribution Width 12.8 % (11.5-14.5); Segmented Neutrophils % 91.3 %
[2021-02-12 01:56] LABS: Calcium 8.6 mg/dL (8.6-10.3); Potassium 4.5 mEq/L (3.5-5.1)
[2021-02-12] MEDS: Insulin LISPRO 300 UNITS/3 ML VIAL SUBQ SCH ×3 (08:19→16:32)
[2021-02-12] MEDS: levETIRAcetam 250 MG TABLET PO SCH ×2 (08:20→20:44)
[2021-02-12] MEDS: Fluconazole 100 MG TABLET PO SCH (08:21)
[2021-02-12] MEDS: Ondansetron 4 MG/2 ML VIAL IVP PRN ×2 (08:41→20:58)
[2021-02-12] MEDS: *HR* FentaNYL (PF) 100 MCG/2 ML VIAL IVP PRN ×2 (11:42→16:02)
[2021-02-12] MEDS ORDERED: Bisacodyl 10 MG RECTAL SUPPOSITORY RC PRN (16:21)
[2021-02-12] MEDS: *HR* OxyCODONE/APAP 10/325 TABLET PO PRN ×2 (16:32→20:44)
[2021-02-13] MEDS ORDERED: Acetaminophen 325 MG TABLET PO ONE (00:02)
[2021-02-13] MEDS: *HR* FentaNYL (PF) 100 MCG/2 ML VIAL IVP PRN ×3 (00:36→14:15)
[2021-02-13 01:28] LABS: Hemoglobin 12.2 g/dL (12.9-16.9); Mean Corpuscular HGB Conc 32.1 g/dL (31.6-35.5); Mean Corpuscular Hemoglobin 29.8 pg (28.0-33.3); Mean Corpuscular Volume 92.9 fL (83.0-100.0); Mean Platelet Volume 10.6 fL (9.4-12.4); Platelet Count 242 K/mcL (140-400); Red Blood Count 4.09 M/mcL (4.19-5.50); Red Cell Distribution Width 13.3 % (11.5-14.5); White Blood Count 14.5 K/mcL (4.3-11.1)
[2021-02-13 01:53] LABS: Potassium 4.3 mEq/L (3.5-5.1)
[2021-02-13] MEDS: *HR* OxyCODONE/APAP 10/325 TABLET PO PRN ×3 (05:42→20:08)
[2021-02-13] MEDS: levETIRAcetam 250 MG TABLET PO SCH ×2 (08:32→20:09)
[2021-02-13] MEDS: Insulin LISPRO 300 UNITS/3 ML VIAL SUBQ SCH ×3 (08:32→16:05)
[2021-02-13] MEDS: Fluconazole 100 MG TABLET PO SCH (08:32)
[2021-02-13] MEDS: Ondansetron 4 MG/2 ML VIAL IVP PRN ×2 (08:38→20:08)
[2021-02-14 07:01] VITALS: BP 129/83
[2021-02-14] MEDS ORDERED: *HR* HYDROcodone/Acet 10/325 mg TABLET PO PRN (07:52)
[2021-02-14] MEDS: Insulin LISPRO 300 UNITS/3 ML VIAL SUBQ SCH ×2 (08:57→12:45)
[2021-02-14] MEDS: levETIRAcetam 250 MG TABLET PO SCH (08:58)
[2021-02-14] MEDS: Ondansetron 4 MG/2 ML VIAL IVP PRN (10:43)
[2021-02-14 17:05] LABS: Calculi Mass 61 mg
== END 2021-02-14 13:38 | disposition home or self-care (01) | DRG 660 ==
LOC: SAMDAY 07:00 → 2ANU 14:20
PROVIDERS: ADMIT Orthopaedic Surgery Orthopaedic Surgery of the Spine; ATTEND Orthopaedic Surgery Orthopaedic Surgery of the Spine

== ENCOUNTER 2021-03-11 15:30 | Inpatient (IN) ==
[2021-03-11] MEDS ORDERED: 0.9 % Sodium Chloride 1,000 ML IVC STA ×2 (15:59→18:20)
[2021-03-11] MEDS ORDERED: Morphine Sulfate 2 MG/ML SYRINGE IVP STA ×2 (16:32→20:01)
[2021-03-11 16:55] LABS: Basophils % 0.2 %; Eosinophils # 0.1 K/mcL (0.0-0.6); Eosinophils % 0.3 %; Hematocrit 40.8 % (37.5-50.1); Hemoglobin 12.7 g/dL (12.9-16.9); Immature Granulocytes % 0.7 % (0-4); Lymphocytes % 6.1 %; Mean Corpuscular HGB Conc 31.1 g/dL (31.6-35.5); Mean Corpuscular Hemoglobin 28.9 pg (28.0-33.3); Mean Corpuscular Volume 92.9 fL (83.0-100.0); Mean Platelet Volume 10.5 fL (9.4-12.4); Monocytes % 6.5 %; Neutrophils # 13.7 K/mcL (1.6-8.9); Platelet Count 278 K/mcL (140-400); Red Blood Count 4.39 M/mcL (4.19-5.50); Red Cell Distribution Width 13.6 % (11.5-14.5); Segmented Neutrophils % 86.2 %; White Blood Count 15.9 K/mcL (4.3-11.1)
[2021-03-11] MEDS ORDERED: Ondansetron 4 MG/2 ML VIAL IVP ONE (16:55)
[2021-03-11 17:18] LABS: Albumin 3.6 g/dL (3.5-5.7); Albumin/Globulin Ratio 0.9 (1.1-2.2); Bilirubin,Direct 0.2 mg/dL (0.0-0.2); Bilirubin,Indirect 0.3 mg/dL (0.0-1.0); Bilirubin,Total 0.5 mg/dL (0.3-1.0); Calcium 9.4 mg/dL (8.6-10.3); Globulin 4.1 g/dL (2.4-3.5); Potassium 4.4 mEq/L (3.5-5.1); Total Protein 7.7 g/dL (6.4-8.9)
[2021-03-11 17:42] LABS: Bilirubin,Urine Negative (Negative); Blood,Urine Small (Negative); Budding Yeast,Urine Few per hpf (None Seen); Clarity,Urine Turbid (Clear); Color,Urine Light-Yellow (Yellow); Glucose,Urine (UA) 500 mg/dL (Normal); Ketones,Urine Trace mg/dL (Negative); Leukocyte Esterase,Urine Large (Negative); Nitrite,Urine Negative (Negative); PH,Urine 6.5 pH Units (5.0-8.0); Protein,Urine 100 mg/dL (Neg-Trace); Specific Gravity,Urine 1.011 (1.010-1.025); Urobilinogen,Urine Normal (Normal); WBC,Urine TNTC per hpf (0-3)
[2021-03-11] MEDS ORDERED: levoFLOXacin 750 MG/150 ML 750 MG/150 ML BAG IVPB ONE (18:19)
[2021-03-11] MEDS ORDERED: Naloxone 0.4 MG/ML INJ IVP PRN (20:00)
[2021-03-11] MEDS ORDERED: Acetaminophen 325 MG TABLET PO PRN (20:00)
[2021-03-11] MEDS ORDERED: Ipratropium/Albuterol Neb 3 ML IH PRN (20:04)
[2021-03-11] MEDS ORDERED: Morphine Sulfate 2 MG/ML SYRINGE IVP PRN (22:02)
[2021-03-11] MEDS ORDERED: *HR* Dextrose 50 % in Water (Vial) 50 ML VIAL IVP PRN (22:18)
[2021-03-11] MEDS ORDERED: Dextrose Gel 15 GM/37.5 ML TUBE PO PRN ×2 (22:18)
[2021-03-11] MEDS ORDERED: D5% in Water 1,000 ML IVC PRN (22:18)
[2021-03-11] MEDS: 0.9 % Sodium Chloride 1,000 ML IVC SCH (22:19)
[2021-03-11] MEDS: Ondansetron 4 MG/2 ML VIAL IVP PRN (22:48)
[2021-03-11] MEDS: Insulin LISPRO 300 UNITS/3 ML VIAL SUBQ SCH (22:48)
[2021-03-11] MEDS ORDERED: *HR* HYDROmorphone (PF) 1 MG/ML SYRINGE IVP PRN (23:28)
[2021-03-12 05:22] LABS: Basophils % 0.3 %; Eosinophils # 0.1 K/mcL (0.0-0.6); Hematocrit 34.7 % (37.5-50.1); Immature Granulocytes % 0.8 % (0-4); Lymphocytes # 1.8 K/mcL (0.6-4.6); Lymphocytes % 13.7 %; Mean Corpuscular HGB Conc 30.8 g/dL (31.6-35.5); Mean Corpuscular Hemoglobin 28.8 pg (28.0-33.3); Mean Corpuscular Volume 93.3 fL (83.0-100.0); Mean Platelet Volume 10.2 fL (9.4-12.4); Monocytes # 1.4 K/mcL (0.0-1.3); Monocytes % 10.6 %; Neutrophils # 9.6 K/mcL (1.6-8.9); Platelet Count 243 K/mcL (140-400); Red Blood Count 3.72 M/mcL (4.19-5.50); Red Cell Distribution Width 13.4 % (11.5-14.5); Segmented Neutrophils % 73.6 %; White Blood Count 13.1 K/mcL (4.3-11.1)
[2021-03-12 05:26] LABS: Hemoglobin 10.7 g/dL (12.9-16.9)
[2021-03-12 05:28] LABS: INR 1.3; Prothrombin Time 14.4 Seconds (9.4-12.1)
[2021-03-12 05:39] LABS: Calcium 8.4 mg/dL (8.6-10.3); Magnesium 1.8 mg/dL (1.6-2.6); Potassium 4.2 mEq/L (3.5-5.1)
[2021-03-12] MEDS: Ondansetron 4 MG/2 ML VIAL IVP PRN (08:54)
[2021-03-12] MEDS: 0.9 % Sodium Chloride 1,000 ML IVC SCH (08:55)
[2021-03-12] MEDS: Insulin LISPRO 300 UNITS/3 ML VIAL SUBQ SCH ×4 (08:55→21:32)
[2021-03-12] MEDS ORDERED: traZODone 50 MG TABLET PO PRN (10:56)
[2021-03-12] MEDS ORDERED: Ondansetron ODT 4 MG TAB.RAPDIS PO PRN (11:20)
[2021-03-12] MEDS: levETIRAcetam 250 MG TABLET PO SCH ×2 (12:12→21:32)
[2021-03-12] MEDS ORDERED: Fluconazole 400 MG/200 ML 400 MG/200 ML BAG IVPB ONE (15:00)
[2021-03-12] MEDS: Insulin DETEMIR 100 UNIT/ML X5UNITS SUBQ SCH (16:10)
[2021-03-12] MEDS ORDERED: *HR* OxyCODONE Immed Rel 5 MG TABLET PO PRN (16:35)
[2021-03-12] MEDS: *HR* OxyCODONE Immed Rel 5 MG TABLET PO PRN (16:52)
[2021-03-13] MEDS: *HR* OxyCODONE Immed Rel 5 MG TABLET PO PRN (02:09)
[2021-03-13 05:01] LABS: Basophils % 0.4 %; Eosinophils # 0.4 K/mcL (0.0-0.6); Eosinophils % 3.4 %; Hematocrit 34.4 % (37.5-50.1); Hemoglobin 10.7 g/dL (12.9-16.9); Immature Granulocytes % 1.3 % (0-4); Lymphocytes # 1.9 K/mcL (0.6-4.6); Lymphocytes % 18.6 %; Mean Corpuscular HGB Conc 31.1 g/dL (31.6-35.5); Mean Corpuscular Hemoglobin 28.8 pg (28.0-33.3); Mean Corpuscular Volume 92.7 fL (83.0-100.0); Mean Platelet Volume 9.8 fL (9.4-12.4); Monocytes # 1.1 K/mcL (0.0-1.3); Monocytes % 10.6 %; Neutrophils # 6.8 K/mcL (1.6-8.9); Platelet Count 252 K/mcL (140-400); Red Blood Count 3.71 M/mcL (4.19-5.50); Red Cell Distribution Width 13.6 % (11.5-14.5); Segmented Neutrophils % 65.7 %; White Blood Count 10.3 K/mcL (4.3-11.1)
[2021-03-13 05:20] LABS: Calcium 8.8 mg/dL (8.6-10.3); Magnesium 1.7 mg/dL (1.6-2.6); Potassium 4.1 mEq/L (3.5-5.1)
[2021-03-13] MEDS: Insulin LISPRO 300 UNITS/3 ML VIAL SUBQ SCH ×2 (08:39→12:22)
[2021-03-13] MEDS ORDERED: Fluconazole 200 MG/100 ML 200 MG/100 ML BAG IVPB SCH (09:00)
[2021-03-13] MEDS ORDERED: Aspirin Enteric Coated 81 MG Tablet PO SCH (09:00)
[2021-03-13] MEDS ORDERED: Multivit/Ca/Min/Fe/FA 1 TAB TABLET PO SCH (09:00)
[2021-03-13] MEDS: levETIRAcetam 250 MG TABLET PO SCH (10:18)
[2021-03-13] MEDS: Insulin DETEMIR 100 UNIT/ML X5UNITS SUBQ SCH (10:19)
[2021-03-13 11:18] VITALS: BP 120/78; PULSE 76; TEMP 98.5; O2SAT 96
[2021-03-13] MEDS ORDERED: levoFLOXacin 750 MG TABLET PO ONE (15:18)
[2021-03-13] MEDS ORDERED: levoFLOXacin 750 MG/150 ML 750 MG/150 ML BAG IVPB SCH (18:00)
== END 2021-03-13 17:00 | disposition home or self-care (01) | DRG 872 ==
LOC: 2ANU 15:30 → EMEROOARM 15:30 → OBSVTOIN 19:41 → 2ANU 21:12
PROVIDERS: ADMIT Internal Medicine; ATTEND Internal Medicine

== ENCOUNTER 2021-03-14 11:05 | Inpatient (IN) ==
[2021-03-14 11:52] LABS: Hematocrit 37.4 % (37.5-50.1); Hemoglobin 11.8 g/dL (12.9-16.9); Mean Corpuscular HGB Conc 31.6 g/dL (31.6-35.5); Mean Corpuscular Hemoglobin 29.4 pg (28.0-33.3); Platelet Count 301 K/mcL (140-400); Red Blood Count 4.02 M/mcL (4.19-5.50); Red Cell Distribution Width 13.4 % (11.5-14.5)
[2021-03-14 11:53] LABS: White Blood Count 23.8 K/mcL (4.3-11.1)
[2021-03-14] MEDS ORDERED: *HR* HYDROmorphone (PF) 1 MG/ML SYRINGE IVP STA (11:58)
[2021-03-14] MEDS ORDERED: Ondansetron 4 MG/2 ML VIAL IVP ONE (11:58)
[2021-03-14] MEDS: 0.9 % Sodium Chloride 1,000 ML IVC SCH ×12 (12:04→18:43)
[2021-03-14 12:13] LABS: Calcium 9.3 mg/dL (8.6-10.3); Potassium 5.1 mEq/L (3.5-5.1)
[2021-03-14] MEDS ORDERED: cefTRIAXone 2,000 MG in 0.9 % Sodium Chloride Mini Bag 100 ML IVPB ONE (12:16)
[2021-03-14] MEDS ORDERED: D5% in Water 1,000 ML IVC PRN ×2 (12:52→18:08)
[2021-03-14] MEDS ORDERED: Ondansetron 4 MG/2 ML VIAL IVP PRN ×2 (12:52→16:12)
[2021-03-14] MEDS ORDERED: *HR* Dextrose 50 % in Water (Vial) 50 ML VIAL IVP PRN ×2 (12:52→18:08)
[2021-03-14] MEDS ORDERED: Naloxone 0.4 MG/ML INJ IVP PRN ×2 (12:52→18:08)
[2021-03-14] MEDS ORDERED: Dextrose Gel 15 GM/37.5 ML TUBE PO PRN ×4 (12:52→18:08)
[2021-03-14] MEDS ORDERED: *HR* HYDROmorphone (PF) 1 MG/ML SYRINGE IVP PRN (12:55)
[2021-03-14] MEDS ORDERED: 0.9 % Sodium Chloride 1,000 ML IVC SCH (13:00)
[2021-03-14 14:17] LABS: Bilirubin,Urine Negative (Negative); Blood,Urine Moderate (Negative); Budding Yeast,Urine Few per hpf (None Seen); Clarity,Urine Turbid (Clear); Color,Urine Yellow (Yellow); Glucose,Urine (UA) 300 mg/dL (Normal); Ketones,Urine Negative (Negative); Leukocyte Esterase,Urine Large (Negative); Nitrite,Urine Negative (Negative); PH,Urine 6.5 pH Units (5.0-8.0); Protein,Urine 30 mg/dL (Neg-Trace); RBC,Urine 15-30 per hpf (0-3); Specific Gravity,Urine 1.007 (1.010-1.025); Urobilinogen,Urine Normal (Normal); WBC,Urine TNTC per hpf (0-3)
[2021-03-14] MEDS ORDERED: Isovue-300 50ML VIAL ONE (15:52)
[2021-03-14] MEDS ORDERED: Ondansetron 4 MG/2 ML VIAL ONE (15:54)
[2021-03-14] MEDS ORDERED: *HR* FentaNYL (PF) 100 MCG/2 ML VIAL ONE (15:54)
[2021-03-14] MEDS ORDERED: Lidocaine -MPF 2% 2 ML VIAL ONE (15:54)
[2021-03-14] MEDS ORDERED: *HR* Propofol 200 MG/20 ML VIAL IVP ONE (15:54)
[2021-03-14] MEDS ORDERED: *HR* Midazolam HCl 2 MG/2 ML VIAL ONE (15:54)
[2021-03-14] MEDS ORDERED: *HR* HYDROmorphone PF 0.5 MG/0.5 ML SYRINGE IVP PRN (16:12)
[2021-03-14] MEDS ORDERED: *HR* OxyCODONE Immed Rel 5 MG TABLET PO PRN (16:12)
[2021-03-14] MEDS ORDERED: Promethazine 6.25 MG in Water for inj. (sterile) 20 ML IVPB PRN (16:12)
[2021-03-14] MEDS ORDERED: levETIRAcetam 250 MG TABLET PO SCH (18:00)
[2021-03-14] MEDS ORDERED: Insulin LISPRO 300 UNITS/3 ML VIAL SUBQ SCH (18:00)
[2021-03-14] MEDS: *HR* HYDROmorphone (PF) 1 MG/ML SYRINGE IVP PRN (18:31)
[2021-03-14] MEDS ORDERED: Acetaminophen IV 1,000 MG/100 ML BAG IVPB ONE (19:33)
[2021-03-14] MEDS: Insulin LISPRO 300 UNITS/3 ML VIAL SUBQ SCH (20:35)
[2021-03-14] MEDS ORDERED: Insulin DETEMIR 100 UNIT/ML X5UNITS SUBQ SCH ×2 (21:00)
[2021-03-14] MEDS: traZODone 50 MG TABLET PO PRN (21:48)
[2021-03-14] MEDS ORDERED: levETIRAcetam 250 MG TABLET PO ONE (22:00)
[2021-03-15] MEDS: Insulin LISPRO 300 UNITS/3 ML VIAL SUBQ SCH ×4 (01:10→21:22)
[2021-03-15 02:41] LABS: Basophils # 0.1 K/mcL (0.0-0.2); Basophils % 0.4 %; Eosinophils % 0.1 %; Immature Granulocytes % 1.3 % (0-4); Lymphocytes # 0.5 K/mcL (0.6-4.6); Lymphocytes % 3.5 %; Mean Corpuscular Hemoglobin 28.8 pg (28.0-33.3); Mean Corpuscular Volume 96.1 fL (83.0-100.0); Mean Platelet Volume 10.3 fL (9.4-12.4); Monocytes # 0.2 K/mcL (0.0-1.3); Monocytes % 1.4 %; Neutrophils # 12.9 K/mcL (1.6-8.9); Platelet Count 259 K/mcL (140-400); Red Blood Count 3.33 M/mcL (4.19-5.50); Red Cell Distribution Width 13.6 % (11.5-14.5); Segmented Neutrophils % 93.3 %; White Blood Count 13.8 K/mcL (4.3-11.1)
[2021-03-15 02:49] LABS: Hemoglobin 9.6 g/dL (12.9-16.9)
[2021-03-15 02:50] LABS: Calcium 8.1 mg/dL (8.6-10.3); Magnesium 1.6 mg/dL (1.6-2.6); Potassium 5.5 mEq/L (3.5-5.1)
[2021-03-15] MEDS: *HR* HYDROmorphone (PF) 1 MG/ML SYRINGE IVP PRN ×3 (03:00→15:39)
[2021-03-15] MEDS ORDERED: Insulin DETEMIR 100 UNIT/ML X5UNITS SUBQ ONE (03:06)
[2021-03-15] MEDS ORDERED: Insulin LISPRO 300 UNITS/3 ML VIAL SUBQ ONE ×2 (03:08→05:00)
[2021-03-15 04:13] LABS: Platelet Estimate Normal (Normal)
[2021-03-15] MEDS: 0.9 % Sodium Chloride 1,000 ML IVC SCH (04:13)
[2021-03-15] MEDS: levETIRAcetam 250 MG TABLET PO SCH ×2 (05:40→17:09)
[2021-03-15] MEDS: *HR* Heparin 5,000 UNIT/ML VIAL SQ SCH ×2 (05:40→16:32)
[2021-03-15] MEDS ORDERED: *HR* Heparin 5,000 UNIT/ML VIAL SQ SCH (06:00)
[2021-03-15] MEDS ORDERED: Insulin LISPRO 300 UNITS/3 ML VIAL SUBQ SCH ×2 (07:30→21:00)
[2021-03-15] MEDS ORDERED: hydrOXYzine pamoate 25 MG CAPSULE PO PRN (08:10)
[2021-03-15] MEDS: levoFLOXacin 750 MG/150 ML 750 MG/150 ML BAG IVPB SCH (08:37)
[2021-03-15] MEDS: Aspirin Enteric Coated 81 MG Tablet PO SCH (08:49)
[2021-03-15] MEDS ORDERED: NON-FORMULARY MEDICATION 1 EACH EACH (Insulin Glargine,Hum.Rec.Anlog [Lantus Solostar] 100 SQ SCH (09:00)
[2021-03-15] MEDS ORDERED: levoFLOXacin 750 MG/150 ML 750 MG/150 ML BAG IVPB SCH (09:00)
[2021-03-15] MEDS ORDERED: LEVETIRACETAM 750 MG PO SCH (09:00)
[2021-03-15] MEDS: traZODone 50 MG TABLET PO PRN (21:22)
[2021-03-15] MEDS: Insulin DETEMIR 100 UNIT/ML X5UNITS SUBQ SCH (21:23)
[2021-03-16 03:28] LABS: Hematocrit 30.3 % (37.5-50.1); Hemoglobin 9.5 g/dL (12.9-16.9); Mean Corpuscular HGB Conc 31.4 g/dL (31.6-35.5); Mean Corpuscular Hemoglobin 29.4 pg (28.0-33.3); Mean Corpuscular Volume 93.8 fL (83.0-100.0); Mean Platelet Volume 9.8 fL (9.4-12.4); Platelet Count 318 K/mcL (140-400); Red Blood Count 3.23 M/mcL (4.19-5.50); Red Cell Distribution Width 13.7 % (11.5-14.5); White Blood Count 16.1 K/mcL (4.3-11.1)
[2021-03-16 03:45] LABS: Calcium 8.4 mg/dL (8.6-10.3); Magnesium 1.7 mg/dL (1.6-2.6); Potassium 4.6 mEq/L (3.5-5.1)
[2021-03-16] MEDS: *HR* HYDROmorphone (PF) 1 MG/ML SYRINGE IVP PRN ×4 (04:11→21:27)
[2021-03-16] MEDS: *HR* Heparin 5,000 UNIT/ML VIAL SQ SCH ×2 (05:19→16:54)
[2021-03-16] MEDS: levETIRAcetam 250 MG TABLET PO SCH ×2 (05:21→16:53)
[2021-03-16] MEDS: Insulin LISPRO 300 UNITS/3 ML VIAL SUBQ SCH ×4 (07:47→21:25)
[2021-03-16] MEDS: Aspirin Enteric Coated 81 MG Tablet PO SCH (07:53)
[2021-03-16 08:25] LABS: Acinetobacter baumannii by PCR Not Detected (Not Detect); Candida albicans by PCR Not Detected (Not Detect); Candida glabrata by PCR DETECTED (Not Detect); Candida krusei by PCR Not Detected (Not Detect); Candida parapsilosis by PCR Not Detected (Not Detect); Candida tropicalis by PCR Not Detected (Not Detect); Enterobacter cloacae Cmplx PCR Not Detected (Not Detect); Enterobacteriaceae by PCR Not Detected (Not Detect); Enterococcus by PCR Not Detected (Not Detect); Escherichia coli by PCR Not Detected (Not Detect); Klebsiella oxytoca by PCR Not Detected (Not Detect); Klebsiella pneumoniae by PCR Not Detected (Not Detect); Proteus by PCR Not Detected (Not Detect); Pseudomonas aeruginosa by PCR Not Detected (Not Detect); Serratia marcescens by PCR Not Detected (Not Detect); Staphylococcus aureus by PCR Not Detected (Not Detect); Staphylococcus by PCR Not Detected (Not Detect); Streptococcus agalactiae(B)PCR Not Detected (Not Detect); Streptococcus by PCR Not Detected (Not Detect); Streptococcus pneumoniae PCR Not Detected (Not Detect); Streptococcus pyogenes (A) PCR Not Detected (Not Detect)
[2021-03-16] MEDS: Micafungin 100 MG in 0.9 % Sodium Chloride Mini Bag 100 ML IVPB SCH (09:19)
[2021-03-16] MEDS: Ondansetron 4 MG/2 ML VIAL IVP PRN (09:22)
[2021-03-16] MEDS: traZODone 50 MG TABLET PO PRN (21:24)
[2021-03-16] MEDS: Insulin DETEMIR 100 UNIT/ML X5UNITS SUBQ SCH (21:24)
[2021-03-17] MEDS: *HR* HYDROmorphone (PF) 1 MG/ML SYRINGE IVP PRN ×4 (04:42→21:11)
[2021-03-17] MEDS: levETIRAcetam 250 MG TABLET PO SCH ×2 (04:42→17:10)
[2021-03-17] MEDS: Ondansetron 4 MG/2 ML VIAL IVP PRN (04:43)
[2021-03-17] MEDS: *HR* Heparin 5,000 UNIT/ML VIAL SQ SCH ×2 (04:46→17:10)
[2021-03-17 05:31] LABS: Hematocrit 32.8 % (37.5-50.1); Hemoglobin 10.1 g/dL (12.9-16.9); Mean Corpuscular HGB Conc 30.8 g/dL (31.6-35.5); Mean Corpuscular Hemoglobin 28.9 pg (28.0-33.3); Mean Platelet Volume 9.3 fL (9.4-12.4); Platelet Count 393 K/mcL (140-400); Red Blood Count 3.49 M/mcL (4.19-5.50); White Blood Count 10.9 K/mcL (4.3-11.1)
[2021-03-17 05:50] LABS: Albumin 2.8 g/dL (3.5-5.7); Albumin/Globulin Ratio 0.9 (1.1-2.2); Bilirubin,Total 0.2 mg/dL (0.3-1.0); Calcium 8.5 mg/dL (8.6-10.3); Globulin 3.2 g/dL (2.4-3.5); Potassium 4.5 mEq/L (3.5-5.1)
[2021-03-17] MEDS: Insulin LISPRO 300 UNITS/3 ML VIAL SUBQ SCH ×4 (08:30→21:13)
[2021-03-17] MEDS: Aspirin Enteric Coated 81 MG Tablet PO SCH (11:00)
[2021-03-17] MEDS: levoFLOXacin 750 MG/150 ML 750 MG/150 ML BAG IVPB SCH (11:01)
[2021-03-17] MEDS: Micafungin 100 MG in 0.9 % Sodium Chloride Mini Bag 100 ML IVPB SCH (11:02)
[2021-03-17] MEDS: traZODone 50 MG TABLET PO PRN (21:10)
[2021-03-17] MEDS: Insulin DETEMIR 100 UNIT/ML X5UNITS SUBQ SCH (21:12)
[2021-03-18] MEDS: levETIRAcetam 250 MG TABLET PO SCH ×2 (05:09→17:15)
[2021-03-18] MEDS: *HR* Heparin 5,000 UNIT/ML VIAL SQ SCH ×2 (05:12→16:57)
[2021-03-18 05:21] LABS: Hematocrit 34.3 % (37.5-50.1); Hemoglobin 10.9 g/dL (12.9-16.9); Mean Corpuscular HGB Conc 31.8 g/dL (31.6-35.5); Mean Corpuscular Hemoglobin 29.3 pg (28.0-33.3); Mean Corpuscular Volume 92.2 fL (83.0-100.0); Mean Platelet Volume 9.5 fL (9.4-12.4); Platelet Count 436 K/mcL (140-400); Red Blood Count 3.72 M/mcL (4.19-5.50); Red Cell Distribution Width 13.6 % (11.5-14.5); White Blood Count 10.7 K/mcL (4.3-11.1)
[2021-03-18 05:33] LABS: Calcium 8.8 mg/dL (8.6-10.3); Potassium 4.5 mEq/L (3.5-5.1)
[2021-03-18] MEDS: Aspirin Enteric Coated 81 MG Tablet PO SCH (07:52)
[2021-03-18] MEDS: Ondansetron 4 MG/2 ML VIAL IVP PRN ×2 (07:53→21:39)
[2021-03-18] MEDS: *HR* HYDROmorphone (PF) 1 MG/ML SYRINGE IVP PRN ×3 (07:53→21:50)
[2021-03-18] MEDS: Insulin LISPRO 300 UNITS/3 ML VIAL SUBQ SCH ×4 (07:53→21:47)
[2021-03-18] MEDS: Micafungin 100 MG in 0.9 % Sodium Chloride Mini Bag 100 ML IVPB SCH (07:54)
[2021-03-18] MEDS ORDERED: levoFLOXacin 750 MG/150 ML 750 MG/150 ML BAG IVPB SCH (12:00)
[2021-03-18] MEDS: 0.9 % Sodium Chloride 1,000 ML IVC SCH (12:19)
[2021-03-18] MEDS: traZODone 50 MG TABLET PO PRN (21:39)
[2021-03-18] MEDS: Insulin DETEMIR 100 UNIT/ML X5UNITS SUBQ SCH (21:48)
[2021-03-19] MEDS: 0.9 % Sodium Chloride 1,000 ML IVC SCH ×2 (02:08→17:35)
[2021-03-19] MEDS: *HR* HYDROmorphone (PF) 1 MG/ML SYRINGE IVP PRN ×6 (02:09→23:56)
[2021-03-19] MEDS: *HR* Heparin 5,000 UNIT/ML VIAL SQ SCH ×2 (05:38→17:35)
[2021-03-19 05:52] LABS: Calcium 8.8 mg/dL (8.6-10.3); Potassium 4.4 mEq/L (3.5-5.1)
[2021-03-19] MEDS: levETIRAcetam 250 MG TABLET PO SCH ×2 (06:06→17:35)
[2021-03-19] MEDS: Insulin LISPRO 300 UNITS/3 ML VIAL SUBQ SCH ×4 (07:55→21:08)
[2021-03-19] MEDS: Aspirin Enteric Coated 81 MG Tablet PO SCH (09:37)
[2021-03-19] MEDS: Ondansetron 4 MG/2 ML VIAL IVP PRN ×2 (09:37→21:17)
[2021-03-19] MEDS: Micafungin 100 MG in 0.9 % Sodium Chloride Mini Bag 100 ML IVPB SCH (09:37)
[2021-03-19] MEDS ORDERED: levoFLOXacin 750 MG/150 ML 750 MG/150 ML BAG IVPB SCH (12:00)
[2021-03-19] MEDS ORDERED: levoFLOXacin 750 MG TABLET PO SCH (14:15)
[2021-03-19] MEDS ORDERED: *HR* HYDROmorphone (PF) 1 MG/ML SYRINGE IVP ONE (16:18)
[2021-03-19] MEDS: traZODone 50 MG TABLET PO PRN (21:07)
[2021-03-19] MEDS: Insulin DETEMIR 100 UNIT/ML X5UNITS SUBQ SCH (21:08)
[2021-03-20 02:18] LABS: Calcium 8.6 mg/dL (8.6-10.3); Potassium 4.2 mEq/L (3.5-5.1)
[2021-03-20] MEDS: *HR* Heparin 5,000 UNIT/ML VIAL SQ SCH (05:50)
[2021-03-20] MEDS: 0.9 % Sodium Chloride 1,000 ML IVC SCH (05:53)
[2021-03-20] MEDS: levETIRAcetam 250 MG TABLET PO SCH (05:53)
[2021-03-20] MEDS: Ondansetron 4 MG/2 ML VIAL IVP PRN ×2 (06:11→11:24)
[2021-03-20] MEDS: *HR* HYDROmorphone (PF) 1 MG/ML SYRINGE IVP PRN ×2 (06:12→11:24)
[2021-03-20] MEDS: Insulin LISPRO 300 UNITS/3 ML VIAL SUBQ SCH (10:03)
[2021-03-20] MEDS: Aspirin Enteric Coated 81 MG Tablet PO SCH (10:04)
[2021-03-20] MEDS: Micafungin 100 MG in 0.9 % Sodium Chloride Mini Bag 100 ML IVPB SCH (10:04)
[2021-03-20 10:48] VITALS: BP 100/65; PULSE 84; TEMP 97.7; O2SAT 94
== END 2021-03-20 14:24 | disposition home or self-care (01) | DRG 853 ==
LOC: 3ANU 11:05 → EMEROOARM 11:05 → SUATTDRO 12:49 → 3ANU 14:02 → SUATTDRO 03-16 14:00
PROVIDERS: ADMIT Pharmacist; ATTEND Internal Medicine